=== PATIENT | female | born 1995 | race Caucasian/White ===

== ENCOUNTER 2021-02-09 14:53 | Emergency (ER) | payer BC, OTHER ==
[~2021-02-09] VITALS: Ht 170.2 cm; Wt 56.7 kg
[2021-02-09] MEDS ORDERED: TRAMADOL 50 MG50 MG PO (15:03)
[2021-02-09] MEDS ORDERED: FLEXERIL PO (15:04)
[2021-02-09 16:28] LABS: URINE BILIRUBIN NEGATIVE (Negative); URINE BLOOD NEGATIVE (Negative); URINE CLARITY CLEAR; URINE COLOR YELLOW; URINE GLUCOSE-RANDOM* NEGATIVE (Negative); URINE KETONES NEGATIVE (Negative); URINE LEUKOCYTES-REFLEX NEGATIVE (Negative); URINE NITRITE-REFLEX NEGATIVE (Negative); URINE PROTEIN (DIPSTICK) NEGATIVE (Negative); URINE UROBILINOGEN 0.2 E.U./dl (0.2-1.0)
[2021-02-09] MEDS ORDERED: CYCLOBENZAPRINE5 MG PO (17:00)
[2021-02-09] MEDS ORDERED: DICLOFENAC SOD100 G1 TOP (17:00)
[2021-02-09] MEDS ORDERED: IBU600 MG PO (17:00)
[2021-02-09 17:15] VITALS: BP 107/74
== END 2021-02-09 17:11 | disposition home or self-care (01) ==
LOC: ER 14:53
PROVIDERS: Physician Assistant
DX: M54.5 Low back pain (principal); Z88.5 Allergy status to narcotic agent